=== PATIENT | female | born 1985 | race Caucasian/White ===

== ENCOUNTER → 2018-04-04 15:42 | Outpatient (CLI) | payer OTHER, SELFPAY ==
--- NOTE | 2018-04-04 | DI.US.S_ITS ---
PROCEDURE: US OB >= 14 WEEKS FETUS INDICATIONS: ANATOMY SCAN OUTSIDE/PRIOR DATING DATA: Last menstrual period (LMP): 11/12/17. LMP-based estimated date of delivery (SANTOS): 08/19/18. First dating scan (date and location): 04/04/18, this study. Estimated date of delivery (SANTOS) from first dating scan: 08/21/18. TECHNIQUE: Real-time scanning was performed of the fetus, with image documentation and biometric measurements. Endovaginal scanning: Not necessary for this examination COMPARISON: None. FINDINGS: General: A single living intrauterine gestation is present. Presentation: Breech. Placenta: Placental position is posterior, without previa. Amniotic fluid index: 13.4 cm, normal range is 5-24 cm. heart rate: 144 beats per minute. Maternal cervical canal: 5.1 cm long. Normal lower limit is 2.5 cm. biometrics: Biparietal diameter: 4.6 cm, 20 weeks 0 days Head circumference: 17.6 cm, 20 weeks 1 day Abdominal circumference: 15.1 cm, 20 weeks 2 days Femur length: 3.2 cm, 20 weeks 0 days Estimated gestational age from initial scan: not applicable. Composite gestational age from present scan: 20 weeks 1 day Estimated weight and percentile: 335 g, 30th percentile Measurement variability for biometric dating: +/- 7 days from 14 weeks to 15 weeks 6 days gestation, +/- 10 days from 16 weeks to 21 weeks 6 days gestation, +/- 2 weeks from 22 weeks to 27 weeks 6 days gestation, +/- 3 weeks for 28 weeks gestation or later. weight reference: 4500 g or EFW >90/95% is considered macrosomia or large for gestational age. EFW <10% is small for gestational age. EFW 5% or less is considered intra-uterine growth restriction. Anatomic survey: Neuro: Ventricles are non-dilated at less than 10 mm. Cisterna magna is normal at 3-11 mm. Cerebellum is normal in size and morphology. Nuchal skin fold: Normal at less than 6 mm between 14-21 weeks gestational age. Face: Nose and lips, facial profile are normal. Spine: No evidence for spina bifida. Heart: 4-chambered heart is present, with normal ventricular outflow tracts. Diaphragm: Diaphragm is intact. Stomach: Left-sided stomach is present. Kidneys: No hydronephrosis. Normal is less than 5 mm in 2nd trimester, less than 7 mm in 3rd trimester. Cord: 3-vessel cord has orthotopic insertion. Bladder: Normal in size. Extremities: All 4 extremities identified. IMPRESSION: 1. 20 week 1 day gestational age with the delivery date projected to be centered on 08/21/18. Growth parameters are symmetric. 2. No anomalies seen. 3. Incidental note is made of a set of 2 uterine fibroids, one located on the left anteriorly inferiorly in a subserosal position measuring up to 3.7 cm x 3.6 x 6.2 cm. A second right inferior subserosal fibroid measures up to 5.8 x 5.7 x 8.0 cm. Dictated by: Herve Costa M.D. on 04/04/2018 at 17:10 Approved by: Herve Costa M.D. on 04/04/2018 at 17:14
== END ==
PROVIDERS: Family Provider Obstetrics & Gynecology; PCP Obstetrics & Gynecology; Visit Provider Obstetrics & Gynecology
DX: Z34.92 Encounter for supervision of normal pregnancy, unspecified, second trimester (principal); Z3A.20 20 weeks gestation of pregnancy; D25.2 Subserosal leiomyoma of uterus
CPT/HCPCS: 76811

== ENCOUNTER → 2018-04-18 12:51 | Outpatient (CLI) | payer OTHER, SELFPAY ==
[2018-04-18 15:13] LABS: Free T4, Direct Thyroxine 0.94 ng/dL (0.78-2.19)
[2018-04-18 15:27] LABS: Thyroid Stimulating Hormone 0.87 uIU/mL (0.47-4.68)
== END ==
PROVIDERS: PCP Obstetrics & Gynecology; Visit Provider Obstetrics & Gynecology
DX: E03.9 Hypothyroidism, unspecified (principal)
CPT/HCPCS: 36415; 84439; 84443

== ENCOUNTER 2018-04-30 08:30 | Outpatient (CLI) | payer OTHER, SELFPAY ==
[2018-04-30 09:22] LABS: Platelet Count 214 X10^3/uL (150-400)
[2018-04-30 09:25] LABS: Aspartate Aminotransferase 28 IU/L (14-36); Blood Urea Nitrogen 9 mg/dL (7-17); Estimated Glomerular Filt Rate > 60.0 mL/min (>60); Uric Acid 2.7 mg/dL (2.5-6.2)
--- NOTE | 2018-04-30 12:44 | PM.OBTRLD ---
Visit Information Visit Information Date of evaluation: 04/30/18 Primary OB Provider: Pratima Mcdonnell On-call OB Provider: Pratima Mcdonnell Reason for Evaluation: Yes other Comments/Additional reasons for admission: Blurred vision and spots Review of Systems Eyes Eyes: Reports blind spots, Reports blurry vision and Reports change in vision Objective Labs Result Diagrams: 04/30/18 09:05 04/30/18 09:05 Labs: Laboratory Results - last 24 hr 04/30/18 04/30/18 09:05 09:05 Plt Count 214 BUN 9 Creatinine 0.50 L Estimated GFR > 60.0 BUN/Creatinine Ratio 18.0 Uric Acid 2.7 AST 28 Evaluation Evaluation Baseline heart rate: 130 Variability: Minimal (3-5) monitor accelerations: Present monitor decelerations: Variable Category of Tracing: I (Appropriate for gestational age) Laboratory results: Laboratory Tests 04/30/18 04/30/18 09:05 09:05 Plt Count 214 BUN 9 Creatinine 0.50 L Estimated GFR > 60.0 BUN/Creatinine Ratio 18.0 Uric Acid 2.7 AST 28 Diagnosis, Plan/Disposition Final Diagnosis (1) 25 weeks gestation of : Current Visit: No Status: Acute (2) Vision changes: Current Visit: No Status: Acute Plan/Disposition Plan: Assessment: 32-year-old 1 para 0 at 25 weeks gestation with vision changes Normal preeclampsia labs Nonstress Test appropriate for gestational age Plan: Discharge to home My office will schedule ophthalmology appointment on Tuesday
== END 2018-04-30 09:56 | disposition home or self-care (01) ==
LOC: OB 05-01 14:01
PROVIDERS: Family Provider Obstetrics & Gynecology; PCP Obstetrics & Gynecology; Visit Provider Obstetrics & Gynecology
DX: Z34.03 Encounter for supervision of normal first pregnancy, third trimester (principal); H53.9 Unspecified visual disturbance; Z3A.25 25 weeks gestation of pregnancy
CPT/HCPCS: 36415; 59025; 84450; 84550; 85049; G0378; G0379